=== PATIENT | female | born 1980 | race Caucasian/White ===

== ENCOUNTER → 2017-06-20 | Outpatient (CLI) | payer BC ==
[~2017-06-20] MED LIST: GABA300C10 PO; ZICAM NAS
== END ==
LOC: STAR 07:53
PROVIDERS: ATTEND Specialist
DX: Z02.9 Encounter for administrative examinations, unspecified (principal)

== ENCOUNTER 2017-06-27 05:30 | Day surgery (SDC) | payer BC ==
[~2017-06-27] VITALS: Ht 170.2 cm; Wt 100.5 kg
[2017-06-27] MEDS ORDERED: LACTATED RINGERS 1,000 ML IV SCH (06:20)
[2017-06-27 06:47] VITALS: BP 121/84
[2017-06-27 06:47] LABS: HCG UR SG 1.021 (1.003-1.030)
[2017-06-27] MEDS ORDERED: MIDAZOLAM 1 MG/ML, 2ML ONE (06:51)
[2017-06-27] MEDS ORDERED: FENTANYL PF 250 MCG/5ML ONE (06:51)
[2017-06-27] MEDS ORDERED: BUPIVACAINE/PF 0.5% ONE (06:53)
[2017-06-27] MEDS ORDERED: CEFAZOLIN 1,000 MG ONE ×3 (06:56→07:01)
[2017-06-27] MEDS ORDERED: PROPOFOL 10 MG/ML, 20ML ONE ×2 (06:56→07:01)
[2017-06-27] MEDS ORDERED: ROCURONIUM 10 MG/ML,10ML ONE (06:56)
[2017-06-27] MEDS ORDERED: BUPIVACAINE/PF 0.25% ONE (06:59)
[2017-06-27] MEDS ORDERED: PHENYLEPHRINE 10 MG/ML ONE (07:03)
[2017-06-27] MEDS ORDERED: NEOSTIGMINE 1 MG/ML, 10ML ONE (07:24)
[2017-06-27] MEDS ORDERED: GLYCOPYRROLATE 0.2MG/1ML, 5ML ONE (07:36)
[2017-06-27] MEDS ORDERED: DEXAMETHASONE 4 MG/ML, 1ML ONE ×2 (08:09)
[2017-06-27] MEDS ORDERED: KETOROLAC 30 MG/1 ML ONE (08:10)
[2017-06-27] MEDS ORDERED: ONDANSETRON 2MG/ML, 2ML ONE ×2 (08:10→11:36)
[2017-06-27] MEDS ORDERED: BUPIVACAINE/PF 0.25% IM ONE (08:14)
[2017-06-27] MEDS ORDERED: OXYcodone 5 MG/5 ML ORAL.SOL UDC PO PRN (08:30)
[2017-06-27] MEDS ORDERED: ACETAMINOPHEN 325 MG TABLET PO PRN (08:30)
[2017-06-27] MEDS ORDERED: PROMETHAZINE 12.5 MG SUPP PR PRN (08:30)
[2017-06-27] MEDS ORDERED: HYDROmorphone 2 MG/ML, 1ML ONE ×2 (08:45→09:50)
[2017-06-27] MEDS ORDERED: FLUORESCEIN SODIUM 500 MG/5 ML ONE (08:57)
[2017-06-27] MEDS ORDERED: INDIGO CARMINE 0.8%, 5ML ONE (08:57)
[2017-06-27] MEDS ORDERED: MEPERIDINE/PF 50 MG/ML ONE (09:13)
[2017-06-27] MEDS: MEPERIDINE/PF 25MG/0.5ML IVPush PRN ×2 (09:17→09:30)
[2017-06-27] MEDS ORDERED: LACTATED RINGERS 1,000 ML IVBOLUS ONE (09:30)
[2017-06-27] MEDS ORDERED: FENTANYL PF 100 MCG/2ML ONE (09:33)
[2017-06-27] MEDS: FENTANYL PF 100 MCG/2ML IV PRN ×2 (09:35→09:40)
[2017-06-27] MEDS ORDERED: HYDROmorphone 1 MG/ML, 1ML IV PRN (10:00)
[2017-06-27] MEDS ORDERED: OXYcodone/APAP 5/325MG TABLET PO PRN (11:30)
[2017-06-27] MEDS ORDERED: ONDANSETRON 2MG/ML, 2ML IVPush PRN (12:00)
[2017-06-27] MEDS ORDERED: PROMETHAZINE 12.5 MG SUPP PR ONE (12:30)
== END 2017-06-27 15:10 ==
LOC: OUT 05:30
PROVIDERS: ATTEND Specialist
DX: N80.0 Endometriosis of uterus (principal); N83.8 Other noninflammatory disorders of ovary, fallopian tube and broad ligament; Z88.0 Allergy status to penicillin
CPT/HCPCS: 58571; 81025; 88307; J0690; J1100; J1170; J1885; J2175; J2250; J2370; J2405; J2704; J2710; J3010; J3490; J7120; S2900